=== PATIENT | female | born 1990 | race Caucasian/White ===

== ENCOUNTER 2016-11-18 11:43 | Emergency (ER) | payer OTHER ==
[~2016-11-18] VITALS: Ht 175.3 cm; Wt 98.9 kg
[~2016-11-18 11:43] MED LIST: ORTHO TRI-CY1 TABLET PO; PROZAC WEEKLY 990 MG PO; PROZAC10 M1; TOPAMAX25 MG PO
[2016-11-18 12:31] LABS: HEMATOCRIT 39.6 % (36.0-46.0); MCH 28.9 PG (29.0-34.0); MCHC 34.3 G/DL (30.0-36.0); MCV 84.1 FL (83-99); MEAN PLAT.VOLUME 9.6 uM^3 (9.5-12.4); PLATELET COUNT 554 K/uL (156-360); RBC DIS.WIDTH-CV 13.1 % (11.8-14.6); RBC DIS.WIDTH-SD 40.3 % (39-53); RED BLOOD COUNT 4.71 M/uL (3.80-5.20); WHITE BLOOD COUNT 9.8 K/uL (4.1-10.2)
[2016-11-18 12:39] LABS: CHLORIDE 107 mEq/L (99-109); POTASSIUM 3.7 mEq/L (3.7-5.4); SODIUM 140 mEq/L (136-147)
[2016-11-18 12:41] LABS: GLUCOSE 101 mg/dL (70-99)
[2016-11-18 12:43] LABS: ANION GAP 12 MEQ/L (2-14); TOTAL BILIRUBIN 0.5 mg/dL (0.0-1.0)
[2016-11-18 12:45] LABS: ALKALINE PHOSPHATASE 49 IU/L (3-129); GFR ESTIMATE (CALCULATED) > 59 mL/min/
[2016-11-18 12:46] LABS: UREA NITROGEN (BUN) 11 mg/dL (9-23)
[2016-11-18 12:54] LABS: QUANTITATIVE HCG < 4.0 MIU/ML
[2016-11-18 13:57] LABS: ADD MIUA? YES; BILIRUBIN NEGATIVE; BLOOD SMALL; COLOR YELLOW ((YELLOW)); GLUCOSE (STRIP) NEGATIVE; KETONES 20; LEUKOCYTES SMALL; NITRITE NEGATIVE; PROTEIN (STRIP) NEGATIVE; SPECIFIC GRAVITY 1.009 (1.000-1.030); UROBILINOGEN 0.2 MG/DL (0.2-1.0)
[2016-11-18 14:02] LABS: BACTERIA 3+ /HPF; EPITHELIAL CELLS 1+ /HPF; MUCUS TRACE /LPF; RED BLOOD CELLS 0-5 /HPF (0-5); UCUL ADDED? YES; WHITE BLOOD CELLS 20-30 /HPF (0-5)
[2016-11-18] MEDS ORDERED: KEFLEX500 MG PO (15:13)
[2016-11-18 15:32] VITALS: BP 119/67
== END 2016-11-18 16:30 | disposition home or self-care (01) ==
LOC: EME 11:43
PROVIDERS: Nurse Practitioner Family
DX: N39.0 Urinary tract infection, site not specified (principal); R00.2 Palpitations; E03.9 Hypothyroidism, unspecified; T38.1X6A Underdosing of thyroid hormones and substitutes, initial encounter; Z91.120 Patient's intentional underdosing of medication regimen due to financial hardship
CPT/HCPCS: 71020; 80053; 81003; 84439; 84443; 84702; 85027; 87086; 99281; 99284; J2060; J7030

== ENCOUNTER 2016-11-20 11:55 | Emergency (ER) | payer OTHER ==
[~2016-11-20] VITALS: Ht 175.3 cm; Wt 99.0 kg
[~2016-11-20 11:55] MED LIST changes: +KEFLEX500 MG PO
[2016-11-20] MEDS ORDERED: LEXAPRO20 MG PO (13:01)
[2016-11-20] MEDS ORDERED: MECLIZINE HCL25 MG PO (14:34)
[2016-11-20 14:58] VITALS: BP 122/84
== END 2016-11-20 15:00 | disposition home or self-care (01) ==
LOC: EME 11:55
DX: R42 Dizziness and giddiness (principal)
CPT/HCPCS: 99281; 99284